=== PATIENT | male | born 1985 | race Caucasian/White ===

== ENCOUNTER 2023-12-02 08:25 | Outpatient (CLI) | payer BC, SELFPAY ==
--- OUTSIDE RECORDS SUMMARY | 2023-12-03 07:30 | XMS_ITS | Clinical Summary ---
Author Name Unknown Organization [facility] Address [place], [place] [address] Care Team Providers Care Freight Associate Name Role Phone [facility] Primary Care Provider [phone] Allergies No known active allergies Medications Medication Sig Dispensed Refills Start Date End Date Status sertraline (ZOLOFT) 100 mg tablet Take 1 tablet by mouth every morning. For mood 90 tablet 1 10/27/2012 Active albuterol HFA (PROAIR HFA) 90 mcg/actuation inhaler Inhale 2 Puffs by mouth 4 times daily if needed. 0 Active durable medical equipment (DME)Indications:Post erior tibial tendon dysfunction 01EF-L Airselect, Standard, Large 1 Each 0 06/07/2022 Active predniSONE (DELTASONE) 20 mg tabletIndications:Pos terior tibial tendon dysfunction,Posterior tibial tendinitis, left 2 tablets once daily for 3 days then 1 tablet once daily for 3 days then 1/2 tablet for 4 days. 11 Tablet 0 07/31/2022 Active Active Problems Problem Noted Date Diagnosed Date Pericardial effusion 09/08/2013 Overview: -09/07/2013 ECHO Normal LV size, wall thickness, and systolic function. EF of 60%. Normal RV size and systolic function. No significant valvular disease noted. Small to moderate sized circumferential pericardial effusion without definite evidence for tamponade. Dyspnea 09/08/2013 [facility] on CPAP 09/08/2013 Dyspnea 09/08/2013 Chest pressure 09/08/2013 Pericarditis 09/08/2013 [facility]IA DEL ROS[facility]IO 09/15/2012 AHI- 24 09/22/2012 Dysthymic disorder 11/19/2007 Social phobia 11/19/2007 Social History Tobacco Use Types Packs/Day Years Used Date Smoking Tobacco: Former Cigarettes 0.5 5 1 - 08/30/2013 Smokeless Tobacco: Never Tobacco Cessation:Counseling Given: Yes Alcohol Use Standard Drinks/Week Comments No 0 (1 standard drink = 0.6 oz pur e alcohol) none Sex and Gender Information Value Date Recorded Sex Assigned at Not on file Gender Identity Not on file Sexual Orientation Not on file Obstetrics History Last Filed Vital Signs Vital Sign Reading Time Taken Comments Blood Pressure 136/86 11/14/2021 3:44 PM X RAY OPERATOR Pulse 90 10/03/2022 9:44 AM X RAY OPERATOR Temperature 37.1 ??C (98.7 ??F) 03/25/2019 1:01 PM CD T Respiratory Rate 18 03/25/2019 1:01 PM CDT Oxygen Saturation 98% 10/03/2022 9:44 AM X RAY OPERATOR Inhaled Oxygen Concentration - - Weight 137.8 kg (303 lb 12.8 oz) 10/03/2022 9:44 AM X RAY OPERATOR Height 182.9 cm (6') 09/08/2013 7:10 PM CDT Body Mass Index 41.2 09/08/2013 7:10 PM CDT Plan of Treatment Health Maintenance Due Date Last Done Comments Tdap 1998 Depression screening for age 12+ 1999 BMI (ht and wt on same day) for age 18+ 2005 Hepatitis C screening for ag e 18-79 2005 Tetanus booster 2007 Lipids for age 35-44 2022 COVID-19 vaccine series (2022- season) 2023 12/02/2021, 03/03/2021, 02/11/2021 Influenza for age 9-49 07/12/2023 HIV for age 15-65 Completed 09/08/2013 Pneumococcal series for age 6-64 Aged Out No longer eligible b ased on patient's age to complete this topic Advance Directives Latest Code Status on File Code Status Date Activated Date Inactivated Comments Full Code 09/08/2013 5:46 PM 09/09/2013 5:17 PM Care Teams Freight Associate Relationship Specialty Start Date End Date [facility] [place] [address] [place] [address] PCP - General 12/17/07
== END 2023-12-02 08:26 | disposition home or self-care (01) ==
LOC: NFLDREF 12-03 07:28
PROVIDERS: PCP Family Medicine; Referring Provider Family Medicine; Visit Provider Family Medicine
DX: Z13.220 Encounter for screening for lipoid disorders (principal); Z13.1 Encounter for screening for diabetes mellitus; Z13.6 Encounter for screening for cardiovascular disorders
CPT/HCPCS: 80061; 82947